=== PATIENT | male | born 1940 | race Caucasian/White ===

== ENCOUNTER 2017-04-28 18:34 | Emergency (ER) | payer MEDICARE ==
[2017-04-28 19:21] LABS: Hemoglobin 12.2 g/dL (14.0-18.0); Mean Corpuscular HGB CONC 33.3 g/dL (32.0-36.0); Mean Corpuscular Hemoglobin 29.2 pg (27.0-31.0); Mean Corpuscular Volume 87.6 fl (80.0-94.0); Mean Platelet Volume 7.5 fL (7.4-10.4); Platelet Count 53 thou/uL (130-400); RBC Distribution Width 13.3 % (11.5-14.5); Red Blood Cell (RBC) Count 4.19 mill/uL (4.70-6.10); White Blood Cell (WBC) Count 4.1 thou/uL (4.8-10.8)
[2017-04-28 19:24] LABS: ALT (SGPT) 31 U/L (8-55); AST (SGOT) 19 U/L (5-34); Albumin 3.8 g/dL (3.4-4.8); Alkaline Phosphatase 77 U/L (40-150); Anion Gap 14 mmol/L (10-20); BUN (Urea Nitrogen) 29 mg/dL (8.4-25.7); Bilirubin, Total 0.7 mg/dL (0.2-1.2); Calc. Creatinine Clearance 0 mL/min (70-130); Calcium 8.5 mg/dL (7.8-10.44); Carbon Dioxide 23 mmol/L (23-31); Chloride 101 mmol/L (98-107); Estimated GFR-MDRD 55; Globulin 2.3 g/dL (2.4-3.5); Glucose 102 mg/dL (83-110); Potassium 4.5 mmol/L (3.5-5.1); Protein, Total 6.1 g/dL (5.8-8.1); Sodium 133 mmol/L (136-145)
[2017-04-28 19:27] LABS: Bilirubin Negative (Negative); Blood, Urine Negative (Negative); Clarity Clear (Clear); Glucose, Urine (Dipstick) Negative (Negative); Leukocyte Negative (Negative); Nitrite Negative (Negative); Protein, Urine (Dipstick) Negative (Neg-Trace); Urobilinogen 0.2 mg/dL (0.2-1.0); pH, Urine 5.5 (5.0-9.0)
[2017-04-28] MEDS ORDERED: Piperacillin/Tazobactam 3.375 GM VIAL ONE (19:36)
[2017-04-28] MEDS ORDERED: Sodium Chloride 0.9% 100 ML ONE (19:37)
[2017-04-28 19:38] LABS: Lymphocytes 92 % (21-51); MDiff Complete? YES; Neutrophil 2 % (42-75); PLT Morphology Comment Appears Decreased; RBC Morphology Normal; Reactive Lymphocytes 6 % (0-10)
--- NOTE | 2017-04-28 20:18 | RAD ---
CHEST TWO VIEWS 04/28/17 Comparison is made with the 03/15/[address] [facility]. The lungs are slightly hyperexpan ded but are clear. The heart size is normal for body habitus and unchanged. Calcification is seen i n the aorta. There is no vascular congestion or edema. There is a little coarsening of markings in the right lower lobe over the right hemidiaphragm. This could be an early infiltrate or could be chronic. The mediastinum is unremarkable and the trachea wa s midline. On the lateral view, one sees a rounded 2.1 cm density in or overlying one of the mid thoracic verte brae. I do not see it on the 2009 study. Further evaluation is needed for this finding. IMPRESSION: 1. Mildly hyperexpanded lungs with coarsening of the right lower lobe markings. An early infilt rate here is not excluded. 2. 2.1 cm rounded sclerotic density in or overlying a mid thoracic vertebrae. I would recommend an elective CT of the chest to investigate this further. Code T POS: HOME
== END 2017-04-28 20:16 | disposition home or self-care (01) ==
LOC: BURERS 18:34
DX: C91.10 Chronic lymphocytic leukemia of B-cell type not having achieved remission (principal); D70.9 Neutropenia, unspecified; G62.9 Polyneuropathy, unspecified; Z86.73 Personal history of transient ischemic attack (TIA), and cerebral infarction without residual deficits; Z79.899 Other long term (current) drug therapy; Z79.02 Long term (current) use of antithrombotics/antiplatelets; Z87.891 Personal history of nicotine dependence
CPT/HCPCS: 71020; 80053; 81003; 83605; 85025; 87040; 87077; 87086; 87149; 87186; 96365; J2543; J7050

== ENCOUNTER 2017-05-28 11:56 | Outpatient (CLI) | payer MEDICARE ==
[2017-05-28 12:30] LABS: ALT (SGPT) 15 U/L (8-55); AST (SGOT) 53 U/L (5-34); Alkaline Phosphatase 208 U/L (40-150); Anion Gap 19 mmol/L (10-20); BUN (Urea Nitrogen) 19 mg/dL (8.4-25.7); Bilirubin, Total 0.3 mg/dL (0.2-1.2); Calc. Creatinine Clearance 0 mL/min (70-130); Calcium 8.3 mg/dL (7.8-10.44); Carbon Dioxide 18 mmol/L (23-31); Chloride 102 mmol/L (98-107); Estimated GFR-MDRD 55; Globulin 2.2 g/dL (2.4-3.5); Glucose 86 mg/dL (83-110); Potassium 4.6 mmol/L (3.5-5.1); Protein, Total 5.2 g/dL (5.8-8.1); Sodium 134 mmol/L (136-145)
[2017-05-28 12:44] LABS: Anisocytosis SLIGHT = 6-15 cells (100X) (0-5/hpf); Band 18 % (5-11); Eosinophils 2 % (0-10); Hemoglobin 12.1 g/dL (14.0-18.0); Lymphocytes 3 % (21-51); MDiff Complete? YES; Mean Corpuscular HGB CONC 32.6 g/dL (32.0-36.0); Mean Corpuscular Hemoglobin 31.9 pg (27.0-31.0); Mean Corpuscular Volume 97.8 fl (80.0-94.0); Neutrophil 77 % (42-75); PLT Morphology Comment Appears Decreased; Platelet Count 100 thou/uL (130-400); RBC Distribution Width 17.9 % (11.5-14.5); Red Blood Cell (RBC) Count 3.79 mill/uL (4.70-6.10); White Blood Cell (WBC) Count 36.2 thou/uL (4.8-10.8)
[2017-05-28 17:11] LABS: CRP (Inflammatory) 4.55 mg/dL (= or < 0.5)
== END 2017-05-28 11:57 | disposition home or self-care (01) ==
LOC: BURLABSP 11:56
PROVIDERS: ATTEND Internal Medicine Infectious Disease
DX: R78.81 Bacteremia (principal); B95.61 Methicillin susceptible Staphylococcus aureus infection as the cause of diseases classified elsewhere
CPT/HCPCS: 80053; 85025; 86140

== ENCOUNTER → 2017-05-28 | Day surgery (SDC) | payer MEDICARE ==
[~2017-05-28] MED LIST: Sodium Chloride 0.9% 10 ML ONE
[2017-05-28 12:51] VITALS: BP 102/55; TEMP 98.3
== END ==
LOC: BUR/OP 12:09
PROVIDERS: ATTEND Family Medicine
DX: Z45.2 Encounter for adjustment and management of vascular access device (principal); C91.90 Lymphoid leukemia, unspecified not having achieved remission; I10 Essential (primary) hypertension; I69.354 Hemiplegia and hemiparesis following cerebral infarction affecting left non-dominant side; M19.90 Unspecified osteoarthritis, unspecified site; E78.5 Hyperlipidemia, unspecified; G62.9 Polyneuropathy, unspecified; Z88.8 Allergy status to other drugs, medicaments and biological substances; Z91.041 Radiographic dye allergy status; Z91.013 Allergy to seafood; Z96.652 Presence of left artificial knee joint; Z98.42 Cataract extraction status, left eye; Z98.41 Cataract extraction status, right eye; Z87.891 Personal history of nicotine dependence; Z83.49 Family history of other endocrine, nutritional and metabolic diseases
CPT/HCPCS: 80053; 85025; 86140; 96523; A4216; J1642

== ENCOUNTER → 2018-12-21 | Emergency (ER) | payer MEDICARE ==
[~2018-12-21] MED LIST changes: +Aspirin Chewable 81 MG TAB ONE; +Iopamidol 370 76% 100 ML VIAL ONE; -Sodium Chloride 0.9% 10 ML ONE
[2018-12-21 06:06] LABS: ALT (SGPT) 25 U/L (8-55); AST (SGOT) 23 U/L (5-34); Albumin 4.5 g/dL (3.4-4.8); Alkaline Phosphatase 109 U/L (40-150); Anion Gap 15 mmol/L (10-20); BUN (Urea Nitrogen) 18 mg/dL (8.4-25.7); Bilirubin, Total 0.5 mg/dL (0.2-1.2); Calc. Creatinine Clearance 0 mL/min (70-130); Calcium 9.6 mg/dL (7.8-10.44); Carbon Dioxide 27 mmol/L (23-31); Chloride 104 mmol/L (98-107); Estimated GFR-MDRD 55; Globulin 2.7 g/dL (2.4-3.5); Glucose 106 mg/dL (83-110); Potassium 4.3 mmol/L (3.5-5.1); Protein, Total 7.2 g/dL (5.8-8.1); Sodium 142 mmol/L (136-145)
[2018-12-21 06:18] LABS: Hemoglobin 14.2 g/dL (14.0-18.0); Lymphocytes 73 % (21-51); MDiff Complete? YES; Mean Corpuscular HGB CONC 31.1 g/dL (32.0-36.0); Mean Corpuscular Hemoglobin 29.1 pg (27.0-31.0); Mean Corpuscular Volume 93.6 fL (78.0-98.0); Mean Platelet Volume 7.1 fL (7.4-10.4); Metamyelocyte 2 % (0-0); Myelocyte 1 % (0-0); Neutrophil 12 % (42-75); Platelet Count 147 thou/uL (130-400); RBC Distribution Width 13.7 % (11.5-14.5); Reactive Lymphocytes 12 % (0-10); Red Blood Cell (RBC) Count 4.95 mill/uL (4.70-6.10); White Blood Cell (WBC) Count 38.1 thou/uL (4.8-10.8)
--- NOTE | 2018-12-21 08:01 | CT ---
CT HEAD NONCONTRAST: Date: 12/21/18 INDICATION: Acute ataxia, weakness. FINDINGS: There is moderate multifocal hypoattenuation of the cerebral hemispheres and brainstem, compatible wi th moderate ischemic disease. 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 No hemorrhage or mass effect. No midline shift. There is a mild degree o f parenchymal volume loss with compensatory dilatation of the ventricular system. Scattered paranasal sinus mucosal thickening present. IMPRESSION: 1. Findings consistent with moderate chronic ischemic disease. 2. Age-indeterminate right lentiform nucleus lacunar infarction. Findings conveyed via telephone to ER physician, Dr. Cintron, at 0553 hours on 12/21/18. CODE CR. POS: [facility]
--- NOTE | 2018-12-21 08:05 | CT ---
CTA HEAD WITH CONTRAST WITH 3D VOLUME RENDERING CTA NECK WITH CONTRAST WITH 3D VOLUME RENDERING: Date: 12/21/18 INDICATION: New onset stroke. Dizziness. Weakness. FINDINGS: The aortic arch demonstrates calcification. There is scattered calcified plaque of the bilateral bruno tid arteries, most notable at the level of the carotid bulbs, although there is no high grade stenosi s or occlusion identified. There is some limitation of the visualization of the vertebral arteries du e to slight reduction and density of contrast bolus, as well as beam attenuation, although no definit e occlusion or high grade stenosis of the vertebral arteries is identified. Basilar artery is patent. Within the [place] of [place], the MCA, GIL, and FLOATING OPERATOR are grossly patent. 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 IMPRESSION: 1. Limited exam by a generalized mild decreased density of the contrast bolus, as well as areas of b eam attenuation artifact. There is no definite high grade stenosis or occlusion of the major arterial system of the head and neck identified. 2. Age-indeterminate lentiform nucleus infarction on the right superimposed upon microvascular ische edmar disease. Consider brain MRI for further evaluation, in light of the patient's new onset neurologi c deficits. Notification of findings placed at 0631 hours on 12/21/18. CODE CR. POS: [facility]
--- NOTE | 2018-12-21 09:31 | RAD ---
PORTABLE CHEST: Date: 12/21/18 HISTORY: Leukocytosis, shortness of breath. FINDINGS: Lungs appear clear. No infiltrate identified. Heart and mediastinum unremarkable. Vasculature normal. IMPRESSION: No acute findings. POS: [facility]
== END ==
LOC: BURERS 05:34
DX: I63.9 Cerebral infarction, unspecified (principal); Z87.891 Personal history of nicotine dependence; Z79.899 Other long term (current) drug therapy
CPT/HCPCS: 36416; 70450; 70496; 70498; 71045; 80053; 83605; 84443; 84484; 85025; 93005; Q9967

== ENCOUNTER 2018-12-24 14:02 | Inpatient (IN) | payer MEDICARE ==
[2018-12-24] MEDS ORDERED: Docusate 100 MG CAP PO PRN (18:42)
[2018-12-24] MEDS ORDERED: Loratadine 10 MG TAB PO PRN (18:42)
[2018-12-24] MEDS ORDERED: Acetaminophen 325 MG TAB PO PRN (18:43)
[2018-12-24] MEDS ORDERED: PATIENT'S HOME MEDICATION TOP SCH (21:00)
[2018-12-24] MEDS ORDERED: Docusate 100 MG CAP PO SCH (21:00)
[2018-12-24] MEDS: Gabapentin 300 MG CAP PO SCH (21:03)
[2018-12-24] MEDS: Simvastatin 20 MG TAB PO SCH (21:05)
[2018-12-25] MEDS: Gabapentin 300 MG CAP PO SCH ×3 (08:49→20:20)
[2018-12-25] MEDS: Clopidogrel Bisulfate 75 MG TAB PO SCH (08:49)
[2018-12-25] MEDS: Aspirin 81 mg Enteric Coated Tablet PO SCH (08:49)
[2018-12-25 16:32] VITALS: BMI 29.9
[2018-12-25] MEDS: Simvastatin 20 MG TAB PO SCH (20:21)
--- NOTE | 2018-12-25 21:47 | HP ---
CHIEF COMPLAINT: Need for skilled rehabilitation following CVA. HISTORY OF THE PRESENT ILLNESS: Mr. Carsno is a 78-year-old male, who presented to [facility] on December 21 with a complaint of weakness to bilateral lower extremities, slurred speech, and a decrease in his right nasolabial fold. He did not lose mobility of the extremities, but throughout the course of admission, his slurred speech improved and some of the weakness to the bilateral lower extremities still remains. 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 Orellana. His workup included a 2D echocardiogram, which confirmed left ventricular ejection fraction of 50% to 55%, normal size of left atrium, aortic valve leaflets somewhat thickened, mild mitral regurgitation, mild tricuspid regurgitation, and no evidence of thrombus. He also had an MRI of the brain without contrast, that showed an acute brain stem infarct at the level of the karlee to the left of midline and severe chronic ischemic white matter change in both cerebral hemispheres. The patient was treated per stroke protocol and aspirin was added to his chronic anti-platelet therapy of Plavix. He is transferred here for further rehabilitation with plans to return home with either outpatient physical and occupational therapy or PT and OT with home health. He is apparently not in need of speech therapy as they [facility] the [facility] and he had no needs at that time. He denies any complaints today. PAST MEDICAL HISTORY: 1. 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 2. CLL, chemo on hold for the last two years, followed by Dr. Orellana. 3. Bilateral cataracts, status post removal. 4. Dyslipidemia. 5. Hypertension. 6. New acute brainstem CVA at the level of the karlee to the left of the midline with residual bilateral lower extremity weakness. PAST SURGICAL HISTORY: 1. Bilateral cataracts. 2. Left total knee replacement. CURRENT MEDICATIONS: 1. Fluorouracil 5% topical solution ordered by Dermatology, started approximately 4 to 5 days ago for precancerous skin lesions multiple amount to the face. 2. Avapro 75 mg p.o. daily. 3. Clopidogrel 75 mg p.o. every Sunday, Sunday, and Sunday. 4. Aspirin 81 mg p.o. daily. 5. Gabapentin 600 mg p.o. t.i.d. 6. Simvastatin 5 mg p.o. daily. ALLERGIES: TO ALLOPURINOL, GEMFIBROZIL, IODINE, LISINOPRIL, SERTRALINE, AND SHRIMP. SOCIAL HISTORY: No alcohol, tobacco, or illicit drug use. The patient is . His daughter is at bedside. He desires to be cardiac resuscitation only in the event of a code. FAMILY HISTORY: Both parents at the age of 92. Mother had lupus. Father had a stroke. REVIEW OF SYSTEMS: CONSTITUTIONAL: Negative for weight loss or gain, fever, chills. SKIN: Again, he has had application of 5 fluorouracil to his face and has had some burning and scabbed lesions formed. EYES: Denies diplopia or pain. No discharge. ENT: Negative for epistaxis, sore throat, rhinorrhea, or ear pain. CARDIOVASCULAR: Negative for palpitations, dyspnea on exertion, orthopnea, or chest pain. RESPIRATORY: Negative for shortness of breath, wheezing, hemoptysis, cough. GASTROINTESTINAL: Negative for poor appetite, abdominal pain, heartburn, nausea , vomiting, or diarrhea. He has had some constipation, but had a good bowel movement this morning. GENITOURINARY: Negative for urgency, frequency, dysuria, nocturia. MUSCULOSKELETAL: Negative for pain or joint swelling. NEUROLOGIC: Negative for anxiety, depression. Remainder as per HPI. No residual slurring of the speech, but minimal lower extremity weakness. 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 ALLERGY/IMMUNOLOGIC/HEMATOLOGIC: Denies tendency toward bleeding. He does have seasonal allergies and is requesting PRN medication for this. PHYSICAL EXAMINATION: VITAL SIGNS: Temperature 97.6, heart rate 67, respirations 20, O2 saturation 96 % on room air, blood pressure 129/60. GENERAL: Well-developed, well-nourished male sitting on the side of the bed, alert, oriented x4, in no acute distress. HEENT: Normocephalic and atraumatic. Pupils are equally round, reactive to light and accommodation, extraocular muscles intact. Nares are patent without discharge. Tongue protrudes in the midline. The face with some blister lesions to the malar region and mild erythema. NECK: Supple without lymphadenopathy, thyromegaly, JVD or bruit. HEART: Regular rate and rhythm with normal S1 and S2. No murmurs, clicks, rubs or gallops. LUNGS: Clear to auscultation with good air entry bilaterally. No crackles or wheezes. ABDOMEN: Positive bowel sounds in all four quadrants. Soft, nontender, nondistended. EXTREMITIES: No cyanosis, clubbing, or edema. 5/5 gross motor to bilateral upper extremities and 4+/5 gross motor bilateral to the lower extremities. NEUROLOGIC: Cranial nerves 2 through 12 grossly intact. The apparent right facial droop and slurring of the speech have resolved since his admission, and some of the lower extremities weakness have resolved. LABORATORY DATA: Most recent lab; white count 31,000 on December 22 with 18% bands, 11% neutrophils, 83% lymphocytes, 12% reactive lymphocytes with a baseline white blood cell count in this range, actually even to the higher 30s for the last 2 years, hemoglobin 13.0, hematocrit 40.2, platelets 142. Sodium 139, potassium 4.4, chloride 107, carbon dioxide 26, BUN 16, creatinine 1.19, glucose 100. LFTs normal. Cholesterol 119, LDL 61, HDL 31, triglycerides 137. Echo and brain MRI as per HPI. ASSESSMENT AND PLAN: 1. S/p acute brainstem infarct at the level of the karlee. The patient is already ambulating 180 feet in the halls with walker assist. We will continue the physical and occupational therapy with a plan to return home with his with either outpatient PT and OT if needed or home health with PT and OT. He seems to be fairly functional and I doubt home health will be needed unless we have any changes during his admission. We will continue aspirin and Plavix and control his blood pressure and will continue his statin therapy. His lipids are well controlled. 2. Hypertension. Again, we will continue his chronic regimen. 3. Neuropathic pain, status post cerebrovascular accident. An element of this may also be due to his chemo. We will continue his gabapentin. 4. Dyslipidemia. Continue simvastatin. 5. Seasonal allergies. We will order loratadine for him to take daily p.r.n. should his symptoms flare. 6. Multiple actinic keratoses. 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 7. Chronic lymphocytic leukemia. His white blood cell count looks to be stable with treatment on hold for the last two years. We will follow up with Dr. Orellana as per his usual routine as an outpatient. 8. Prophylaxis. The patient is currently ambulatory, so based on his moderate risk we will place SCDs while in bed. 9. Code status. The patient wants to be cardiac resuscitation only. Job ID: [id number] MTDD
[2018-12-26] MEDS: Aspirin 81 mg Enteric Coated Tablet PO SCH (08:59)
[2018-12-26] MEDS: Gabapentin 300 MG CAP PO SCH ×3 (08:59→21:44)
[2018-12-26] MEDS: Simvastatin 5 MG TAB PO SCH (21:44)
[2018-12-27] MEDS: Gabapentin 300 MG CAP PO SCH ×3 (09:34→21:04)
[2018-12-27] MEDS: Clopidogrel Bisulfate 75 MG TAB PO SCH (09:34)
[2018-12-27] MEDS: Aspirin 81 mg Enteric Coated Tablet PO SCH (09:34)
[2018-12-27] MEDS: Simvastatin 5 MG TAB PO SCH (21:04)
[2018-12-28] MEDS: Aspirin 81 mg Enteric Coated Tablet PO SCH (09:11)
[2018-12-28] MEDS: Gabapentin 300 MG CAP PO SCH ×3 (09:11→21:38)
[2018-12-28] MEDS: Simvastatin 5 MG TAB PO SCH (21:38)
[2018-12-29] MEDS: Aspirin 81 mg Enteric Coated Tablet PO SCH (09:22)
[2018-12-29] MEDS: Gabapentin 300 MG CAP PO SCH ×3 (09:22→21:57)
[2018-12-29] MEDS: Simvastatin 5 MG TAB PO SCH (21:57)
[2018-12-30 06:52] VITALS: BP 122/61; TEMP 97.8
[2018-12-30] MEDS: Aspirin 81 mg Enteric Coated Tablet PO SCH (09:26)
[2018-12-30] MEDS: Clopidogrel Bisulfate 75 MG TAB PO SCH (09:27)
[2018-12-30] MEDS: Gabapentin 300 MG CAP PO SCH (09:27)
--- NOTE | 2018-12-31 02:44 | DIS ---
DATE OF ADMISSION: 12/24/2018 DATE OF DISCHARGE: 12/30/2018 ADMISSION DIAGNOSES: 1. Status post brainstem cerebrovascular accident. 2. Hypertension. 3. Chronic lymphocytic leukemia. 4. Neuropathic pain. 5. Hyperlipidemia. 6. Allergies. 7. Actinic keratosis. DISCHARGE DIAGNOSES: 1. Status post brainstem cerebrovascular accident. 2. Hypertension. 3. Chronic lymphocytic leukemia. 4. Neuropathic pain. 5. Hyperlipidemia. 6. Allergies. 7. Actinic keratosis. HISTORY AND PHYSICAL: Please see dictated report from the date of admission. CORRECTION COURSE: Mr. Carson is a very pleasant 78-year-old male who came to our facility for skilled physical and occupational therapy following an acute CVA of the brainstem and karlee region. He had initially had some slurring of his speech, but that had improved to baseline prior to his discharge here. He had some bilateral lower extremity weakness that remained. He improved gradually and throughout his shelter course here, was able to ambulate further with each session with walker assist. He now is able to accomplish his ADLs. He had an occupational therapy evaluation performed and does not have any occupational therapy needs post discharge. He will come to our outpatient physical therapy unit for continued PT. The patient will be discharged with aspirin to add to his previous anti-platelet therapy of clopidogrel. The patient had a history of hypertension that was well controlled throughout his hospital stay. He has a history of chronic lymphocytic leukemia and his white count is actually at a lower baseline than it was back in 2017 at which point he arrested treatment secondary to side effects. He is being monitored in the outpatient setting by Dr. Orellana. The patient with a history of neuropathic pain, which was well controlled during his stay here on his gabapentin from home. He did not need a dose increase. The patient had a skin rash that was secondary to 5-fluorouracil topical application for actinic keratosis. We held this during his skilled stay due to the discomfort that he was having and his skin has cleared nicely. 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 DISPOSITION: Discharged home. CONDITION: Good. MEDICATIONS: 1. Aspirin 81 mg p.o. daily. 2. Plavix 75 mg p.o. q Sunday, Sunday, and Sunday. 3. Colace 100 mg p.o. b.i.d. p.r.n. 4. Gabapentin 600 mg p.o. t.i.d. 5. Simvastatin 5 mg p.o. at bedtime. 6. Avapro 75 mg p.o. daily. 7. 5-fluorouracil topical at bedtime per Dermatology. FOLLOWUP: Follow up will be with me Dr. Grier in approximately 14 days. Job ID: [id number]
== END 2018-12-30 14:15 | disposition home or self-care (01) | DRG 57 ==
LOC: BURMED 15:55
PROVIDERS: ADMIT Family Medicine; ATTEND Family Medicine
DX: I69.351 Hemiplegia and hemiparesis following cerebral infarction affecting right dominant side (principal); I69.354 Hemiplegia and hemiparesis following cerebral infarction affecting left non-dominant side; C91.10 Chronic lymphocytic leukemia of B-cell type not having achieved remission; E78.5 Hyperlipidemia, unspecified; I10 Essential (primary) hypertension; M79.2 Neuralgia and neuritis, unspecified; J30.2 Other seasonal allergic rhinitis; L57.0 Actinic keratosis; Z96.652 Presence of left artificial knee joint; Z98.42 Cataract extraction status, left eye; Z98.41 Cataract extraction status, right eye; Z79.82 Long term (current) use of aspirin; Z88.8 Allergy status to other drugs, medicaments and biological substances; Z91.041 Radiographic dye allergy status; Z91.013 Allergy to seafood

== ENCOUNTER 2019-09-16 11:11 | Outpatient (CLI) | payer MEDICARE, OTHER ==
--- NOTE | 2019-09-16 17:50 | RAD ---
LEFT WRIST THREE VIEWS: 09/16/19 No fracture was seen. There is slight sclerosis and perhaps a few bony erosions in the lunate. This appears to be longstanding. There is no fragmentation of the lunate itself. The other carpal bones ar e normal in appearance. Dense arterial calcifications are evident. IMPRESSION: Some erosion and sclerosis of the lunate. Correlate with exact site of clinical pain. POS: HOME
== END 2019-09-16 11:12 | disposition home or self-care (01) ==
LOC: BURRAD 11:11
PROVIDERS: ATTEND Family Medicine
DX: M25.532 Pain in left wrist (principal); M25.832 Other specified joint disorders, left wrist
CPT/HCPCS: 36415; 84550

== ENCOUNTER 2020-08-25 11:20 | Emergency (ER) | payer MEDICARE, OTHER ==
[2020-08-25 12:06] LABS: Hemoglobin 12.6 g/dL (14.0-18.0); Mean Corpuscular HGB CONC 32.6 g/dL (32.0-36.0); Mean Corpuscular Hemoglobin 30.3 pg (27.0-31.0); Mean Corpuscular Volume 92.9 fL (78.0-98.0); Mean Platelet Volume 8.3 fL (7.4-10.4); Platelet Count 108 thou/uL (130-400); RBC Distribution Width 13.9 % (11.5-14.5); Red Blood Cell (RBC) Count 4.17 mill/uL (4.70-6.10); White Blood Cell (WBC) Count 35.3 thou/uL (4.8-10.8)
[2020-08-25 12:18] LABS: ALT (SGPT) 21 U/L (8-55); AST (SGOT) 24 U/L (5-34); Albumin 4.1 g/dL (3.4-4.8); Alkaline Phosphatase 89 U/L (40-110); Anion Gap 17 mmol/L (10-20); BUN (Urea Nitrogen) 23 mg/dL (8.4-25.7); Bilirubin, Total 0.5 mg/dL (0.2-1.2); Calc. Creatinine Clearance 0 mL/min (70-130); Calcium 8.5 mg/dL (7.8-10.44); Carbon Dioxide 23 mmol/L (23-31); Chloride 106 mmol/L (98-107); Estimated GFR-MDRD 51; Globulin 2.1 g/dL (2.4-3.5); Glucose 96 mg/dL (83-110); Potassium 4.5 mmol/L (3.5-5.1); Protein, Total 6.2 g/dL (5.8-8.1); Sodium 141 mmol/L (136-145)
[2020-08-25 12:23] LABS: Anisocytosis SLIGHT = 6-15 cells (100X) (0-5/hpf); Band 1 % (5-11); Hypochromia SLIGHT = 6-15 cells (100X) (0-5/hpf); Lymphocytes 82 % (21-51); MDiff Complete? YES; Monocytes 2 % (0-10); Neutrophil 14 % (42-75); Platelet Morphology Comment Appears Adequate; Reactive Lymphocytes 1 % (0-10); Reflex for Review?? YES; Stomatocytes SLIGHT = 2-5 cells (100X) (0-1/hpf); Target Cells SLIGHT = 2-5 cells (100X) (0-1/hpf)
== END 2020-08-25 12:45 | disposition home or self-care (01) ==
LOC: BURERS 11:20
DX: R60.0 Localized edema (principal); T39.395A Adverse effect of other nonsteroidal anti-inflammatory drugs [NSAID], initial encounter; R79.89 Other specified abnormal findings of blood chemistry; I10 Essential (primary) hypertension; M10.9 Gout, unspecified; E78.00 Pure hypercholesterolemia, unspecified; Z86.73 Personal history of transient ischemic attack (TIA), and cerebral infarction without residual deficits; Z87.891 Personal history of nicotine dependence; Z79.899 Other long term (current) drug therapy; Z79.82 Long term (current) use of aspirin; Z79.02 Long term (current) use of antithrombotics/antiplatelets
CPT/HCPCS: 36415; 80053; 83880; 85025; 85060; 93005

== ENCOUNTER 2022-12-28 01:40 | Inpatient (IN) | payer MEDICARE, OTHER ==
[2022-12-28 02:12] VITALS: BMI 29.5
[2022-12-28] MEDS ORDERED: Acetaminophen 325 MG TAB PO PRN (03:23)
[2022-12-28] MEDS ORDERED: Albuterol 200 PUFF (6.7GM INHALER) INH PRN (03:25)
[2022-12-28] MEDS ORDERED: Bisacodyl 5 MG TAB PO PRN (03:26)
[2022-12-28] MEDS ORDERED: Bisacodyl 10 MG SUPP PR PRN (03:27)
[2022-12-28] MEDS ORDERED: Furosemide 40 MG TAB PO PRN (03:30)
[2022-12-28] MEDS: Aspirin 81 mg Enteric Coated Tablet PO SCH (08:27)
[2022-12-28] MEDS: Gabapentin 300 MG CAP PO SCH ×3 (08:27→20:34)
[2022-12-28] MEDS: Cholecalciferol 1,000 UNITS (25 MCG) TAB PO SCH (08:29)
[2022-12-28] MEDS: Saccharomyces boulardii 250 MG CAP PO SCH (08:29)
[2022-12-28] MEDS: Potassium Chloride 10 MEQ TAB PO SCH (08:29)
[2022-12-28] MEDS: Losartan 25 MG TAB PO SCH (08:30)
[2022-12-28] MEDS: Piperacillin/Tazobactam 3.375 GM in Sodium Chloride 0.9% 100 ML IVPB SCH ×2 (09:37→19:27)
[2022-12-28] MEDS: Dexamethasone 4 mg/ml Vial SLOW IVP SCH (09:38)
[2022-12-28] MEDS: Furosemide 20 MG TAB PO SCH (09:38)
[2022-12-28] MEDS: Vancomycin HCl 1 GM in Sodium Chloride 0.9% 250 ML 250 ML IVPB SCH (14:42)
[2022-12-28] MEDS ORDERED: Vancomycin HCl 1 GM in Sodium Chloride 0.9% 250 ML 250 ML IVPB SCH (15:00)
[2022-12-28] MEDS ORDERED: Vancomycin HCl 750 MG in Sodium Chloride 0.9% 250 ML 250 ML IVPB SCH ×2 (15:00→16:00)
[2022-12-28] MEDS ORDERED: Vancomycin HCl 500 MG in Sodium Chloride 0.9% 100 ML IVPB SCH (16:30)
[2022-12-28] MEDS: Vancomycin HCl 750 MG in Sodium Chloride 0.9% 250 ML 250 ML IVPB SCH (17:06)
[2022-12-28] MEDS: Melatonin 3 MG TAB PO PRN (20:33)
[2022-12-28] MEDS: Simvastatin 5 MG TAB PO SCH (20:34)
[2022-12-28] MEDS ORDERED: FLUOROURACIL TOP SCH (21:00)
[2022-12-29] MEDS: Piperacillin/Tazobactam 3.375 GM in Sodium Chloride 0.9% 100 ML IVPB SCH ×3 (02:12→18:18)
[2022-12-29] MEDS: Dexamethasone 4 mg/ml Vial SLOW IVP SCH (08:36)
[2022-12-29] MEDS: Gabapentin 300 MG CAP PO SCH ×3 (08:38→20:57)
[2022-12-29] MEDS: Aspirin 81 mg Enteric Coated Tablet PO SCH (08:39)
[2022-12-29] MEDS: Saccharomyces boulardii 250 MG CAP PO SCH (08:39)
[2022-12-29] MEDS: Furosemide 20 MG TAB PO SCH (08:39)
[2022-12-29] MEDS: Losartan 25 MG TAB PO SCH (08:39)
[2022-12-29] MEDS: Potassium Chloride 10 MEQ TAB PO SCH (08:40)
[2022-12-29] MEDS: Cholecalciferol 1,000 UNITS (25 MCG) TAB PO SCH (08:41)
[2022-12-29] MEDS ORDERED: Clopidogrel Bisulfate 75 MG TAB PO SCH (09:00)
[2022-12-29] MEDS: Vancomycin HCl 750 MG in Sodium Chloride 0.9% 250 ML 250 ML IVPB SCH (14:56)
[2022-12-29] MEDS: Vancomycin HCl 1 GM in Sodium Chloride 0.9% 250 ML 250 ML IVPB SCH (14:56)
[2022-12-29] MEDS: Simvastatin 5 MG TAB PO SCH (20:57)
[2022-12-29] MEDS: Melatonin 3 MG TAB PO PRN (21:30)
[2022-12-30] MEDS: Piperacillin/Tazobactam 3.375 GM in Sodium Chloride 0.9% 100 ML IVPB SCH ×3 (02:10→19:04)
[2022-12-30] MEDS: Dexamethasone 4 mg/ml Vial SLOW IVP SCH (09:25)
[2022-12-30] MEDS: Gabapentin 300 MG CAP PO SCH ×3 (09:35→22:04)
[2022-12-30] MEDS: Losartan 25 MG TAB PO SCH (09:36)
[2022-12-30] MEDS: Aspirin 81 mg Enteric Coated Tablet PO SCH (09:37)
[2022-12-30] MEDS: Potassium Chloride 10 MEQ TAB PO SCH (09:37)
[2022-12-30] MEDS: Furosemide 20 MG TAB PO SCH (09:37)
[2022-12-30] MEDS: Saccharomyces boulardii 250 MG CAP PO SCH (09:37)
[2022-12-30] MEDS: Cholecalciferol 1,000 UNITS (25 MCG) TAB PO SCH (09:38)
[2022-12-30] MEDS: Vancomycin HCl 1 GM in Sodium Chloride 0.9% 250 ML 250 ML IVPB SCH (14:46)
[2022-12-30] MEDS: Vancomycin HCl 750 MG in Sodium Chloride 0.9% 250 ML 250 ML IVPB SCH (14:54)
[2022-12-30 17:06] LABS: Vancomycin, Trough 12.8 ug/mL
[2022-12-30] MEDS: Melatonin 3 MG TAB PO PRN (22:04)
[2022-12-30] MEDS: Simvastatin 5 MG TAB PO SCH (22:04)
[2022-12-31] MEDS: Piperacillin/Tazobactam 3.375 GM in Sodium Chloride 0.9% 100 ML IVPB SCH ×3 (02:22→18:14)
[2022-12-31 05:30] LABS: Anion Gap 14 mmol/L (10-20); BUN (Urea Nitrogen) 27 mg/dL (8.4-25.7); Calc. Creatinine Clearance 71 mL/min (70-130); Calcium 8.3 mg/dL (7.8-10.44); Carbon Dioxide 25 mmol/L (23-31); Chloride 104 mmol/L (98-107); Estimated GFR 67; Glucose 117 mg/dL (83-110); Sodium 138 mmol/L (136-145)
[2022-12-31] MEDS: Dexamethasone 4 mg/ml Vial SLOW IVP SCH (09:53)
[2022-12-31] MEDS: Aspirin 81 mg Enteric Coated Tablet PO SCH (10:05)
[2022-12-31] MEDS: Furosemide 20 MG TAB PO SCH (10:05)
[2022-12-31] MEDS: Saccharomyces boulardii 250 MG CAP PO SCH (10:05)
[2022-12-31] MEDS: Potassium Chloride 10 MEQ TAB PO SCH (10:05)
[2022-12-31] MEDS: Cholecalciferol 1,000 UNITS (25 MCG) TAB PO SCH (10:05)
[2022-12-31] MEDS: Gabapentin 300 MG CAP PO SCH ×3 (10:06→21:23)
[2022-12-31] MEDS: Losartan 25 MG TAB PO SCH (10:07)
[2022-12-31] MEDS: Vancomycin HCl 1 GM in Sodium Chloride 0.9% 250 ML 250 ML IVPB SCH (15:10)
[2022-12-31] MEDS ORDERED: Vancomycin HCl 1 GM in Sodium Chloride 0.9% 250 ML 250 ML IVPB SCH (16:00)
[2022-12-31 17:23] VITALS: BP 124/57; TEMP 98.7
[2022-12-31] MEDS: Simvastatin 5 MG TAB PO SCH (21:23)
[2022-12-31] MEDS: Melatonin 3 MG TAB PO PRN (21:23)
[2023-01-01] MEDS: Piperacillin/Tazobactam 3.375 GM in Sodium Chloride 0.9% 100 ML IVPB SCH (02:12)
== END 2023-01-01 07:30 | disposition short-term general hospital (02) | DRG 947 ==
LOC: BURMED 01:40
PROVIDERS: ADMIT Family Medicine; ATTEND Family Medicine
DX: R53.1 Weakness (principal); J12.82 Pneumonia due to coronavirus disease 2019; D84.9 Immunodeficiency, unspecified; C91.10 Chronic lymphocytic leukemia of B-cell type not having achieved remission; Z66 Do not resuscitate; I10 Essential (primary) hypertension; R53.81 Other malaise; Z96.652 Presence of left artificial knee joint; E78.5 Hyperlipidemia, unspecified; Z98.41 Cataract extraction status, right eye; Z98.42 Cataract extraction status, left eye; Z79.82 Long term (current) use of aspirin; Z86.73 Personal history of transient ischemic attack (TIA), and cerebral infarction without residual deficits; Z79.51 Long term (current) use of inhaled steroids; Z79.899 Other long term (current) drug therapy; Z88.8 Allergy status to other drugs, medicaments and biological substances; Z91.013 Allergy to seafood; Z91.041 Radiographic dye allergy status; Z79.02 Long term (current) use of antithrombotics/antiplatelets
CPT/HCPCS: 36415; 36416; 71045; 80048; 80202; J1100; J1650; J2543; J3370; J3490; J7050

== ENCOUNTER 2023-01-01 07:04 | Emergency (ER) | payer MEDICARE, OTHER ==
[2023-01-01 07:30] LABS: Lactic Acid 2.2 mmol/L (0.5-2.2); Mean Corpuscular HGB CONC 31.8 g/dL (32.0-36.0); Mean Corpuscular Hemoglobin 29.5 pg (27.0-31.0); Mean Corpuscular Volume 92.7 fl (78.0-98.0); Mean Platelet Volume 7.8 fL (7.4-10.4); Platelet Count 199 10x3/uL (130-400); RBC Distribution Width 14.4 % (11.5-14.5); Red Blood Cell (RBC) Count 4.42 mill/uL (4.70-6.10)
[2023-01-01 07:38] LABS: ALT (SGPT) 87 U/L (8-55); AST (SGOT) 50 U/L (5-34); Albumin 3.7 g/dL (3.4-4.8); Alkaline Phosphatase 136 U/L (40-110); Anion Gap 15 mmol/L (10-20); BUN (Urea Nitrogen) 28 mg/dL (8.4-25.7); Bilirubin, Total 0.7 mg/dL (0.2-1.2); Calc. Creatinine Clearance 0 mL/min (70-130); Calcium 8.6 mg/dL (7.8-10.44); Carbon Dioxide 23 mmol/L (23-31); Chloride 105 mmol/L (98-107); Estimated GFR 62; Globulin 2.9 g/dL (2.4-3.5); Glucose 91 mg/dL (83-110); Potassium 4.8 mmol/L (3.5-5.1); Protein, Total 6.6 g/dL (5.8-8.1); Sodium 138 mmol/L (136-145)
[2023-01-01 07:41] LABS: Lymphocytes 95 % (21-51); MDiff Complete? YES; Neutrophil 5 % (42-75); Nucleated RBC 2 % (0); Platelet Morphology Comment Appears Adequate; RBC Morphology Normal
== END 2023-01-01 07:43 | disposition short-term general hospital (02) ==
LOC: BURERS 07:04
DX: U07.1 COVID-19 (principal); J12.82 Pneumonia due to coronavirus disease 2019; I10 Essential (primary) hypertension; E78.00 Pure hypercholesterolemia, unspecified; Z87.891 Personal history of nicotine dependence; Z79.899 Other long term (current) drug therapy; Z79.82 Long term (current) use of aspirin
CPT/HCPCS: 80053; 83605; 83880; 85025; 99285; 36415-59